=== PATIENT | male | born 1960 | race Caucasian/White ===

== ENCOUNTER 2016-10-24 11:23 | Emergency (ER) | payer OTHER ==
[~2016-10-24] VITALS: Ht 175.3 cm; Wt 81.5 kg
[~2016-10-24 11:23] MED LIST: Z.0.NO CURRENT MEDS
[2016-10-24 11:25] VITALS: BP 202/110; PULSE 84; RESP 16; TEMP 98.4; O2SAT 98
[2016-10-24 11:42] VITALS: BP 170/114; PULSE 80
[2016-10-24] MEDS ORDERED: IBUP800T23 PO (12:58)
[2016-10-24] MEDS ORDERED: CYCL1TAB29 PO (12:58)
--- NOTE | 2016-10-24 12:58 | PD ---
HPI Chief Complaint: Back/ Neck Pain or Injury Time Seen by Provider: 12:54 Travel History International Travel<30 days: No Contact w/Intl Traveler<30days: No Traveled to known affect area: No History of Present Illness HPI 56-year-old male presents emergency Department with complaint of left lateral neck pain 4 days after lifting a lot of sandbags the other day. Denies paresthesias, loss of sensation, decreased range of motion, decreased strength bilateral upper extremities. Denies fever, vomiting. Denies focal deficits or weakness. He says the pain is worse at night when he strained to sleep. Pain is worse in the morning when he wakes up and better throughout the day. Denies decreased range of motion of the neck. Pain extends the left upper shoulder area. Has been taking ibuprofen for symptom management. Has no other medical complaints. Symptoms are mild in severity. No known allergies. No other modifying factors or associated signs and symptoms. PFSH Past Medical History Hx Anticoagulant Therapy: No Cardiovascular Problems: Yes (HTN) Chemotherapy: No Cerebrovascular Accident: No Diabetes: No Diminished Hearing: No Respiratory: No ?: Not Past Surgical History Hysterectomy: No Social History Alcohol Use: Yes (drinks every other day ) Tobacco Use: Yes (FEW DAILY ) Substance Use: Yes (marajuiana ) Allergies-Medications (Allergen,Severity, Reaction): Coded Allergies: No Known Allergies (Verified , 04/26/11) Reported Meds & Prescriptions Reported Meds & Active Scripts Active Ibuprofen 800 Mg Tab 800 Mg PO Q6HR PRN Flexeril (Cyclobenzaprine HCl) 10 Mg Tab 10 Mg PO TID PRN Reported No Current Meds (Miscellaneous Medication) [facility] [place] Review of Systems Except as stated in HPI: all other systems reviewed are Neg Physical Exam Narrative GENERAL: Well-nourished, well-developed male patient, in no acute distress; afebrile, nontoxic-appearing SKIN: Warm and dry. HEAD: Atraumatic. Normocephalic. EYES: Pupils equal and round. No scleral icterus. No injection or drainage. ENT: Mucosa pink and moist. Airway patent. NECK: Trachea midline. No lymphadenopathy. No midline point tenderness on palpation of the cervical spine. Active rotation of the neck greater than 45 left and right. Reproducible tenderness to the left lateral musculature of the trapezius muscle of the neck. No obvious deformities. CARDIOVASCULAR: Regular rate. RESPIRATORY: No accessory muscle use. GASTROINTESTINAL: Flat. MUSCULOSKELETAL: No obvious deformities. No clubbing. No cyanosis. No edema. Normal gait. BACK: No point tenderness on palpation of thoracic spine. No obvious deformities. NEUROLOGICAL: Awake and alert. Oriented 3. No obvious cranial nerve deficits. Motor grossly within normal limits. Normal speech. Moves all extremities. 5/5 strength to all extremities. Sensory intact. PSYCHIATRIC: Appropriate mood and affect; insight and judgment normal. Data Data Last Documented VS Vital Signs Date Time Temp Pulse Resp B/P (MAP) Pulse Ox O2 Delivery O2 Flow Rate FiO2 10/24/16 11:42 80 170/114 (132) 10/24/16 11:25 98.4 16 98 Orders Orders Methocarbamol (Robaxin) (10/24/16 13:00) Ibuprofen (Motrin) (10/24/16 13:00) Cyclobenzaprine (Flexeril) (10/24/16 13:00) [facility] Medical Decision Making Medical Screen Exam Complete: Yes Emergency Medical Condition: Yes Medical Record Reviewed: Yes Differential Diagnosis Muscle strain, muscle spasm, cervical strain Narrative Course 55-year-old male physical exam and history of present illness consistent with strain and cervical portion of left trapezius muscle and trapezius muscle spasm. Denies traumatic injury. [place] C-Spine Rule suggests the C-Spine can be cleared clinically of fracture, and imaging is not required. There is no midline point tenderness on palpation of the cervical spine. The patient is able to actively rotate the neck 45 left and right. The patient is sitting up in bed at 90. The patient is ambulatory. Flexeril and ibuprofen administered in the ear. Flexeril and ibuprofen prescribed for home. Instructed patient to follow up with primary care provider. Patient verbalizes understanding and agreement with treatment plan. Patient is medically cleared and stable for discharge. Discussed reasons to return to the emergency department. Patient agrees with treatment plan. The patients vital signs are stable and the patient is stable for outpatient follow-up and treatment. Patient discharged home, stable and in no acute distress. Diagnosis Primary Impression: Strain of cervical portion of left trapezius muscle Additional Impression: Trapezius muscle spasm Referrals: Primary Care Physician Patient Instructions: General Instructions, Muscle Spasm (ED), Muscle Strain ( ED) Departure Forms: Tests/Procedures, Work Release Enter return to work date: Oct 27, 2016 Additional Instructions: Tylenol or ibuprofen as directed and as needed to reduce pain Flexeril as prescribed for muscle spasms Get adequate rest Ice and/or heating pad to affected area to reduce pain Avoid aggravating activity; increase activity as tolerated Follow-up with primary care provider Return to the emergency department immediately with worsening symptoms Med/Other Pt SpecificInfo: Prescription(s) given Scripts Ibuprofen (Ibuprofen) 800 Mg Tab 800 MG PO Q6HR Y for PAIN, #30 TAB 0 Refills Prov: Mili Suarez 10/24/16 Cyclobenzaprine (Flexeril) 10 Mg Tab 10 MG PO TID Y for MUSCLE SPASM, #30 TAB 0 Refills Prov: Mili Suarez 10/24/16 Disposition: 01 DISCHARGE HOME Condition: Stable Mili Suarez Oct 24, 2016 12:58
[2016-10-24] MEDS ORDERED: IBUPROFEN 800 MG TAB PO ONE (13:00)
[2016-10-24] MEDS ORDERED: CYCLOBENZAPRINE HCL 10 MG TAB PO ONE (13:00)
[2016-10-24] MEDS ORDERED: METHOCARBAMOL 500 MG TAB PO ONE (13:00)
== END 2016-10-24 13:32 | disposition home or self-care (01) ==
LOC: EDTENT 11:23
DX: S16.1XXA Strain of muscle, fascia and tendon at neck level, initial encounter (principal); M62.830 Muscle spasm of back; X50.0XXA Overexertion from strenuous movement or load, initial encounter; I10 Essential (primary) hypertension
CPT/HCPCS: 99283